=== PATIENT | female | born 1990 | race Caucasian/White ===

== ENCOUNTER 2017-04-21 08:07 | Emergency (ER) | payer OTHER ==
[~2017-04-21 08:07] MED LIST: ALBUTEROL17 GM INH; AMOXICILLIN875 MG PO; ATARAX PO; AUGMENTIN PO; BENTYL20 MG PO; BIRTH CONTROL PILL PO; CELEBREX PO; CELECOXIB200 MG PO; CIPRO PO; CLEOCIN PO; CYMBALTA PO; CYMBALTA30 MG PO; DICLOFENAC PO; FIORICET1 TAB; GABAPENTIN800 MG PO; HYDROCODONE/APA1 T16 PO; ILOTYCIN1 GM TOP; IMITREX25 MG PO; KEFLEX500 M2 PO; KEFLEX500 MG PO; LITHIUM PO; LORTAB ELIXIR15 ML PO; LOSARTAN POTASS25 MG PO; MEDROL4 MG/DOSE- PO; MIGRAINE MED; MOTRIN400 MG PO; MOTRIN600 M2 PO; MUSCLE SPASM MED; NAPROSYN500 MG PO; NEURONTIN300 MG PO; NO MEDICATIONS; ORTHO TRI-7 DAYS X; ORTHO-NOVUM1 TA1; ORUDIS75 M1 DOB; OXYCODONE HCL5 M1 PO; PANTOPRAZOLE SO40 MG PO; PENNSAID112 GM; PERCOCET; PHENERGAN25 MG PO; PREDNISONE PO; REGLAN10 MG PO; ROBAXIN 750750 M1 PO; SEROQUEL PO; SEROQUEL XR200 MG PO; THORAZINE25 MG PO; TIZANIDINE HCL6 MG PO; TOBRAMYCIN; TOPAMAX PO; TRAZODONE PO; TYLENOL/CO12 MG/5 ML PO; VICODIN 5/1 TAB 5/50 PO; VISTARIL PO; VOLTAREN75 MG PO; ZESTORETIC1 TAB; ZITHROMAX PO; [UNRECOGNIZED DRUG - OTHER] TOP
== END 2017-04-21 09:57 | disposition home or self-care (01) ==
LOC: SED 08:07
DX: G43.909 Migraine, unspecified, not intractable, without status migrainosus (principal); K21.9 Gastro-esophageal reflux disease without esophagitis; F31.9 Bipolar disorder, unspecified; Z90.49 Acquired absence of other specified parts of digestive tract; Z88.8 Allergy status to other drugs, medicaments and biological substances; Z79.899 Other long term (current) drug therapy
CPT/HCPCS: 96372; 99283; J1170; J2550

== ENCOUNTER 2017-05-07 14:33 | Emergency (ER) | payer OTHER ==
[2017-05-07] MEDS ORDERED: COZAAR (14:37)
== END 2017-05-07 16:05 | disposition home or self-care (01) ==
LOC: SED 14:33
DX: G43.909 Migraine, unspecified, not intractable, without status migrainosus (principal); I10 Essential (primary) hypertension; Z88.8 Allergy status to other drugs, medicaments and biological substances; Z79.899 Other long term (current) drug therapy
CPT/HCPCS: 36415; 96361; 96374; 96375; 99283; J1100; J1885; J2550

== ENCOUNTER 2017-05-15 14:50 | Emergency (ER) | payer OTHER ==
[~2017-05-15] VITALS: Ht 152.4 cm; Wt 104.3 kg
--- NOTE | ~2017-05-15 | CT2 ---
[facility] A Service of [facility] RADIOLOGY TEXT RESULTS PATIENT: LIN LAN LOCATION: [place] : [birth year] UNIT #: [id number] AGE: [address]: Willard Hudson MD SEX: F ORDER DR: [id number] [facility] [address] [place], [place] [address] [id number] MR#: [id number] Acc #: [id number] NAME: LIN LAN : 1990 SEX: F STUDY DATE/TIME: 05/15/2017 17:33 UNIT: [place] ROOM: STUDY DESCRIPTION: CT Abd and Pelv W Cont Attending Physician: Willard Hudson M.D. Ordering Physician: Willard Hudson M.D. Primary Care Physician: Zane Lopez M.D. MEDICAL IMAGING REPORT This report is preliminary unless electronic signature is present EXAM CT scan of the abdomen and pelvis with contrast 05/15/2017. HISTORY Burning sharp abdominal pain for 2 days with vomiting. Hypertension. TECHNIQUE Spiral CT was performed through the abdomen and pelvis following oral and intravenous contrast administration. This CT exam was performed with one or more of the following radiation dose reduction techniques: automatic exposure control, adjustment of mA and/or kV according to patient size, and iterative reconstruction. FINDINGS Abdomen: The liver, spleen, pancreas, adrenal glands and kidneys are normal. The gallbladder is surgically absent. Pelvis findings: The gut, mesenteric and hussain structures are normal. There is no free fluid in the abdomen or pelvis. The lung bases are normal. IMPRESSION Surgical absence of the gallbladder. Otherwise negative CT scan of the abdomen and pelvis with contrast. Dictated by... Henrry Meyer M.D. THIS IS AN ELECTRONICALLY VERIFIED REPORT Henrry Meyer M.D. at 05/16/2017 2:22 PM KRT/gz [facility] A Service of [facility] RADIOLOGY TEXT RESULTS PATIENT: LIN LAN LOCATION: [place] : [birth year] UNIT #: [id number] AGE: [address]: Willard Hudson MD SEX: F ORDER DR: TD: 05/16/2017 09:11 JOB #: [id number] MEDICAL IMAGING REPORT Page 1 of 1 COPY
[~2017-05-15 14:50] MED LIST changes: +COZAAR
[2017-05-15 15:47] LABS: URINE SOURCE CLEAN CATCH
[2017-05-15 15:51] LABS: URINE APPEARANCE CLOUDY; URINE BILIRUBIN NEG (NEG); URINE BLOOD NEG (NEG); URINE COLOR YELLOW; URINE GLUCOSE NEG (NEG); URINE KETONE NEG (NEG); URINE LEUKOCYTE ESTERASE 3+ (NEG); URINE NITRATE NEG (NEG); URINE PROTEIN NEG (NEG); URINE SPECIFIC GRAVITY 1.013 (1.003-1.035); URINE UROBILINOGEN 0.2 MG/DL (NEG)
[2017-05-15 15:52] LABS: BASOPHIL% 0.5 % (0-2.5); EOSINOPHIL# 0.1 X10e3 (0-0.7); EOSINOPHIL% 0.7 % (0.0-7.0); HEMATOCRIT 38.8 % (35.0-45.0); HEMOGLOBIN 12.9 gm/dL (12.0-16.0); LYMPHOCYTE# 2.1 X10e3 (1.0-3.5); LYMPHOCYTE% 23.6 % (17.0-45.0); MEAN CELL VOLUME 81.9 FL (83-96); MEAN CORPUSCULAR HEMOGLOBIN 27.3 PG (28-34); MEAN CORPUSCULAR HGB CONC 33.3 g/dL (30-36); MEAN PLATELET VOLUME 8.8 FL (6.5-11.5); MONOCYTE# 0.7 X10e3 (0-1.0); MONOCYTE% 7.7 % (3.0-12.0); NEUTROPHIL# 5.9 X10e3 (1.5-7.1); NEUTROPHIL% 67.5 % (40-75); PLATELET COUNT 238 X10e3 (140-420); RED BLOOD COUNT 4.73 X10e (3.90-5.30); RED CELL DISTRIBUTION WIDTH 14.8 % (11.0-15.5); WHITE BLOOD COUNT 8.8 X10e3 (4.0-10.5)
[2017-05-15 15:53] LABS: CULTURE INDICATED? YES; URBCS1 AUWI 0-2 /[HPF] (0-2); URINE BACTERIA AUWI 4+ (NEGATIVE); URINE SQUAMOUS EPITHELIAL CELL MOD /[HPF]; UWBCS1 AUWI 25-50 (0-5)
[2017-05-15 15:55] LABS: DIFF IND NO
[2017-05-15 16:16] LABS: ALBUMIN SERUM 3.9 g/dL (3.5-5.0); BILIRUBIN, DIRECT 0.1 mg/dL (0.0-0.2); BILIRUBIN,INDIRECT 0.4 mg/dL (0.0-0.9); BILIRUBIN,TOTAL 0.5 mg/dL (0.2-2.0); BUN/CREATININE RATIO 14.28; CALCIUM SERUM 9.2 mg/dL (8.4-10.2); CREATININE SERUM 0.7 mg/dL (0.6-1.4); GLOM FILT RATE Estimated 118.7 mL/min (>60); POTASSIUM 3.6 mmol/L (3.5-5.1); PROTEIN TOTAL SERUM 7.7 g/dL (6.0-8.3)
== END 2017-05-15 19:12 | disposition home or self-care (01) ==
LOC: CED 14:50
PROVIDERS: Emergency Medicine
DX: N30.00 Acute cystitis without hematuria (principal); K21.9 Gastro-esophageal reflux disease without esophagitis; I10 Essential (primary) hypertension; Z90.49 Acquired absence of other specified parts of digestive tract; F31.9 Bipolar disorder, unspecified; G43.909 Migraine, unspecified, not intractable, without status migrainosus; Z88.8 Allergy status to other drugs, medicaments and biological substances
CPT/HCPCS: 36415; 74177; 80048; 80076; 81003; 83690; 84703; 85025; 87086; 96361; 96365; 96375; 99284; J0696; J2270; J2405; J2550; Q9967